=== PATIENT | male | born 1935 | race African-American/Black ===

== ENCOUNTER 2022-11-04 09:55 | Inpatient (IN) | payer OTHER ==
[2022-11-04] MEDS ORDERED: ACETAMINOPHEN 1000 MG/100 ML BAG IVPB ONE (10:53)
[2022-11-04 11:59] LABS: URINE APPEARANCE CLEAR; URINE BILIRUBIN NEGATIVE (NEGATIVE); URINE COLOR YELLOW; URINE GLUCOSE (UA) NEGATIVE (NEGATIVE); URINE KETONE NEGATIVE (NEGATIVE); URINE LEUK ESTERASE NEGATIVE (NEGATIVE); URINE NITRITE NEGATIVE (NEGATIVE); URINE PROTEIN NEGATIVE (NEGATIVE); URINE UROBILINOGEN 0.2 mg/dL (0.2-1.0)
[2022-11-04 12:00] LABS: BASO % 0.8 % (0-2.0); EOS % 0.2 % (0-4.5); HEMATOCRIT 25.7 % (35.4-49); HEMOGLOBIN 8.3 GM/dL (11.7-16.9); LYMPH % 26.9 % (8-40); MCH 26.5 pg (25.7-33.7); MCHC 32.3 g/dl (32.0-35.9); MEAN CELL VOLUME 82.1 fl (80-96); MEAN PLT VOLUME 7.8 fl (7.5-11.1); MONO % 7.7 % (3.8-10.2); NEUT % 64.4 % (42.8-82.8); PLATELET COUNT 224 10^3/uL (134-434); RBC 3.13 M/mm3 (4.00-5.60); RDW 15.6 % (11.9-15.9); WHITE BLOOD COUNT 4.2 K/mm3 (4.0-10.0)
[2022-11-04 12:07] LABS: INR 1.02 (0.83-1.09); PROTHROMBIN TIME (PATIENT) 11.7 SEC (9.7-13.0)
[2022-11-04 12:11] LABS: ACTIVATED PTT 29.1 SECONDS (25.2-36.5)
[2022-11-04 12:24] LABS: BLOOD UREA NITROGEN 16.5 mg/dL (7-18); CALCIUM 8.4 mg/dL (8.5-10.1)
[2022-11-04 12:25] LABS: ALBUMIN 3.2 g/dl (3.4-5.0)
[2022-11-04 12:28] LABS: CREATININE 1.3 mg/dL (0.55-1.3)
[2022-11-04 12:29] LABS: BILIRUBIN,TOTAL 0.3 mg/dL (0.2-1)
[2022-11-04] MEDS: PANTOPRAZOLE 40 MG TABLET PO SCH (19:33)
[2022-11-04 22:33] LABS: HEMOGLOBIN 8.9 GM/dL (11.7-16.9); MCH 27.2 pg (25.7-33.7); MCHC 32.8 g/dl (32.0-35.9); MEAN PLT VOLUME 7.3 fl (7.5-11.1); PLATELET COUNT 209 10^3/uL (134-434); RBC 3.25 M/mm3 (4.00-5.60); RDW 15.8 % (11.9-15.9); WHITE BLOOD COUNT 4.6 K/mm3 (4.0-10.0)
[2022-11-04] MEDS ORDERED: PANTOPRAZOLE 40 MG TABLET PO ONE (22:35)
[2022-11-04 23:05] LABS: CALCIUM 8.5 mg/dL (8.5-10.1)
[2022-11-04 23:06] LABS: ALBUMIN 3.1 g/dl (3.4-5.0); BLOOD UREA NITROGEN 15.3 mg/dL (7-18)
[2022-11-04 23:09] LABS: CREATININE 1.1 mg/dL (0.55-1.3)
[2022-11-04 23:10] LABS: BILIRUBIN,TOTAL 0.4 mg/dL (0.2-1)
[2022-11-04 23:11] LABS: TOT PROT 5.8 g/dl (6.4-8.2)
[2022-11-05 02:48] VITALS: BMI 32.5
[2022-11-05 10:18] LABS: BASO % 0.5 % (0-2.0); EOS % 0.4 % (0-4.5); HEMATOCRIT 27.3 % (35.4-49); HEMOGLOBIN 8.9 GM/dL (11.7-16.9); LYMPH % 34.8 % (8-40); MCH 26.9 pg (25.7-33.7); MCHC 32.5 g/dl (32.0-35.9); MEAN CELL VOLUME 82.9 fl (80-96); MEAN PLT VOLUME 7.7 fl (7.5-11.1); MONO % 8.1 % (3.8-10.2); NEUT % 56.2 % (42.8-82.8); PLATELET COUNT 228 10^3/uL (134-434); RDW 15.5 % (11.9-15.9); WHITE BLOOD COUNT 4.4 K/mm3 (4.0-10.0)
[2022-11-05] MEDS: PANTOPRAZOLE 40 MG TABLET PO SCH (10:21)
[2022-11-05 10:33] LABS: BLOOD UREA NITROGEN 15.6 mg/dL (7-18); CALCIUM 8.6 mg/dL (8.5-10.1)
[2022-11-05 10:36] LABS: CREATININE 1.2 mg/dL (0.55-1.3); PHOSPHOROUS 3.5 mg/dL (2.5-4.9)
[2022-11-05 10:38] LABS: BILIRUBIN,TOTAL 0.5 mg/dL (0.2-1); TOT PROT 5.8 g/dl (6.4-8.2)
[2022-11-05] MEDS: POLYETHYLENE GLYCOL (HEALTHYLAX) 3350 17 GM PACKET PO SCH ×2 (13:12→21:12)
[2022-11-06] MEDS: POLYETHYLENE GLYCOL (HEALTHYLAX) 3350 17 GM PACKET PO SCH ×3 (05:45→21:11)
[2022-11-06 09:35] LABS: BASO % 0.4 % (0-2.0); EOS % 0.4 % (0-4.5); HEMATOCRIT 26.1 % (35.4-49); HEMOGLOBIN 8.5 GM/dL (11.7-16.9); LYMPH % 37.1 % (8-40); MCH 27.1 pg (25.7-33.7); MCHC 32.8 g/dl (32.0-35.9); MEAN CELL VOLUME 82.7 fl (80-96); MEAN PLT VOLUME 7.5 fl (7.5-11.1); MONO % 8.8 % (3.8-10.2); NEUT % 53.3 % (42.8-82.8); PLATELET COUNT 239 10^3/uL (134-434); RBC 3.15 M/mm3 (4.00-5.60); RDW 15.5 % (11.9-15.9); WHITE BLOOD COUNT 4.2 K/mm3 (4.0-10.0)
[2022-11-06 09:44] LABS: CALCIUM 8.7 mg/dL (8.5-10.1)
[2022-11-06 09:45] LABS: BLOOD UREA NITROGEN 13.8 mg/dL (7-18)
[2022-11-06 09:48] LABS: CREATININE 1.2 mg/dL (0.55-1.3)
[2022-11-06] MEDS: PANTOPRAZOLE 40 MG TABLET PO SCH (10:40)
[2022-11-06] MEDS ORDERED: BISACODYL 5 MG TABLET.DR (FP) PO ONE (16:00)
[2022-11-06] MEDS ORDERED: PEG 3350/NA SULF BICARB CL/KCL 4000 ML SOLN.RECON PO ONE (17:00)
[2022-11-07] MEDS: POLYETHYLENE GLYCOL (HEALTHYLAX) 3350 17 GM PACKET PO SCH ×3 (05:43→21:48)
[2022-11-07] MEDS: PANTOPRAZOLE 40 MG TABLET PO SCH (11:54)
[2022-11-07 14:11] LABS: BASO % 0.6 % (0-2.0); EOS % 0.3 % (0-4.5); HEMATOCRIT 29.9 % (35.4-49); HEMOGLOBIN 9.7 GM/dL (11.7-16.9); LYMPH % 31.2 % (8-40); MCHC 32.4 g/dl (32.0-35.9); MEAN CELL VOLUME 83.2 fl (80-96); MEAN PLT VOLUME 7.5 fl (7.5-11.1); MONO % 7.3 % (3.8-10.2); NEUT % 60.6 % (42.8-82.8); PLATELET COUNT 293 10^3/uL (134-434); RBC 3.59 M/mm3 (4.00-5.60); RDW 15.8 % (11.9-15.9); WHITE BLOOD COUNT 4.6 K/mm3 (4.0-10.0)
[2022-11-07 14:18] LABS: INR 1.02 (0.83-1.09); PROTHROMBIN TIME (PATIENT) 11.7 SEC (9.7-13.0)
[2022-11-07 14:27] LABS: CALCIUM 8.8 mg/dL (8.5-10.1)
[2022-11-07 14:28] LABS: BLOOD UREA NITROGEN 7.8 mg/dL (7-18)
[2022-11-07 14:31] LABS: CREATININE 1.1 mg/dL (0.55-1.3)
[2022-11-08] MEDS: POLYETHYLENE GLYCOL (HEALTHYLAX) 3350 17 GM PACKET PO SCH ×3 (06:11→21:56)
[2022-11-08 08:42] LABS: BASO % 0.5 % (0-2.0); EOS % 0.4 % (0-4.5); HEMATOCRIT 25.1 % (35.4-49); HEMOGLOBIN 8.3 GM/dL (11.7-16.9); LYMPH % 29.2 % (8-40); MCH 27.3 pg (25.7-33.7); MEAN CELL VOLUME 82.8 fl (80-96); MEAN PLT VOLUME 7.3 fl (7.5-11.1); NEUT % 60.9 % (42.8-82.8); PLATELET COUNT 226 10^3/uL (134-434); RBC 3.03 M/mm3 (4.00-5.60); RDW 15.9 % (11.9-15.9); WHITE BLOOD COUNT 4.5 K/mm3 (4.0-10.0)
[2022-11-08 08:47] LABS: INR 1.03 (0.83-1.09); PROTHROMBIN TIME (PATIENT) 11.8 SEC (9.7-13.0)
[2022-11-08 09:06] LABS: CALCIUM 8.5 mg/dL (8.5-10.1)
[2022-11-08 09:10] LABS: CREATININE 1.2 mg/dL (0.55-1.3)
[2022-11-08] MEDS: PANTOPRAZOLE 40 MG TABLET PO SCH (10:16)
[2022-11-09] MEDS: POLYETHYLENE GLYCOL (HEALTHYLAX) 3350 17 GM PACKET PO SCH ×3 (06:31→21:43)
[2022-11-09] MEDS: PANTOPRAZOLE 40 MG TABLET PO SCH (09:32)
[2022-11-09] MEDS ORDERED: BISACODYL 5 MG TABLET.DR (FP) PO ONE (16:00)
[2022-11-09] MEDS ORDERED: PEG 3350/NA SULF BICARB CL/KCL 4000 ML SOLN.RECON PO ONE (17:00)
[2022-11-10] MEDS: POLYETHYLENE GLYCOL (HEALTHYLAX) 3350 17 GM PACKET PO SCH ×3 (05:31→22:03)
[2022-11-10 10:59] LABS: BASO % 1.1 % (0-2.0); EOS % 0.9 % (0-4.5); HEMATOCRIT 26.4 % (35.4-49); HEMOGLOBIN 8.7 GM/dL (11.7-16.9); MCH 27.4 pg (25.7-33.7); MCHC 33.1 g/dl (32.0-35.9); MEAN CELL VOLUME 82.7 fl (80-96); MEAN PLT VOLUME 7.1 fl (7.5-11.1); MONO % 9.3 % (3.8-10.2); NEUT % 62.7 % (42.8-82.8); PLATELET COUNT 244 10^3/uL (134-434); RBC 3.19 M/mm3 (4.00-5.60); WHITE BLOOD COUNT 4.2 K/mm3 (4.0-10.0)
[2022-11-10 11:25] LABS: BLOOD UREA NITROGEN 4.6 mg/dL (7-18); CALCIUM 8.6 mg/dL (8.5-10.1)
[2022-11-10 11:28] LABS: CREATININE 1.2 mg/dL (0.55-1.3)
[2022-11-10 11:29] LABS: BILIRUBIN,TOTAL 0.5 mg/dL (0.2-1); TOT PROT 5.8 g/dl (6.4-8.2)
[2022-11-10] MEDS ORDERED: EPINEPHrine 1:10,000 (P-F SYR) 1 MG/10 ML DISP.SYRIN ONE (12:44)
[2022-11-10] MEDS: PANTOPRAZOLE 40 MG TABLET PO SCH (14:41)
[2022-11-11] MEDS: POLYETHYLENE GLYCOL (HEALTHYLAX) 3350 17 GM PACKET PO SCH ×3 (06:36→21:32)
[2022-11-11] MEDS: PANTOPRAZOLE 40 MG TABLET PO SCH (09:33)
[2022-11-11 10:56] LABS: BASO % 0.3 % (0-2.0); EOS % 0.6 % (0-4.5); HEMATOCRIT 26.2 % (35.4-49); HEMOGLOBIN 8.6 GM/dL (11.7-16.9); LYMPH % 16.6 % (8-40); MCH 27.2 pg (25.7-33.7); MCHC 32.9 g/dl (32.0-35.9); MEAN CELL VOLUME 82.7 fl (80-96); MEAN PLT VOLUME 6.9 fl (7.5-11.1); MONO % 9.3 % (3.8-10.2); NEUT % 73.2 % (42.8-82.8); PLATELET COUNT 235 10^3/uL (134-434); RBC 3.17 M/mm3 (4.00-5.60); RDW 16.1 % (11.9-15.9); WHITE BLOOD COUNT 5.4 K/mm3 (4.0-10.0)
[2022-11-11] MEDS: metoPROLOL SUCCINATE 25 MG TAB.SR.24H (FP) PO SCH (15:49)
[2022-11-11] MEDS: TAMSULOSIN HCL 0.4 MG CAP PO SCH (15:49)
[2022-11-11] MEDS: FINASTERIDE 5 MG TABLET (FP) PO SCH (15:50)
[2022-11-11] MEDS: amLODIPine BESYLATE 5 MG TABLET (FP) PO SCH (15:50)
[2022-11-11] MEDS ORDERED: ATORVASTATIN CA 10 MG TABLET (FP) PO SCH (22:00)
[2022-11-12] MEDS: POLYETHYLENE GLYCOL (HEALTHYLAX) 3350 17 GM PACKET PO SCH ×2 (05:59→13:38)
[2022-11-12 06:17] VITALS: TEMP 98.9
[2022-11-12] MEDS: PANTOPRAZOLE 40 MG TABLET PO SCH (09:45)
[2022-11-12] MEDS: metoPROLOL SUCCINATE 25 MG TAB.SR.24H (FP) PO SCH (09:45)
[2022-11-12] MEDS: amLODIPine BESYLATE 5 MG TABLET (FP) PO SCH (09:45)
[2022-11-12] MEDS: FINASTERIDE 5 MG TABLET (FP) PO SCH (09:45)
[2022-11-12] MEDS: TAMSULOSIN HCL 0.4 MG CAP PO SCH (09:45)
[2022-11-12 13:15] LABS: HEMATOCRIT 28.3 % (35.4-49); HEMOGLOBIN 9.2 GM/dL (11.7-16.9); MCH 27.1 pg (25.7-33.7); MCHC 32.6 g/dl (32.0-35.9); MEAN CELL VOLUME 83.3 fl (80-96); MEAN PLT VOLUME 7.2 fl (7.5-11.1); PLATELET COUNT 261 10^3/uL (134-434); RDW 16.3 % (11.9-15.9); WHITE BLOOD COUNT 5.5 K/mm3 (4.0-10.0)
[2022-11-12 14:38] VITALS: BP 131/71; PULSE 77; RESP 18
== END 2022-11-12 16:33 | disposition home or self-care (01) | DRG 379 ==
LOC: JER 09:55 → JERBED 11:16 → J8W 23:18
PROVIDERS: ADMIT Internal Medicine; ATTEND Internal Medicine
PROC: 0DBH8ZX Excision of Cecum, Via Natural or Artificial Opening Endoscopic, Diagnostic (ICD-10-PCS; 2022-11-07)
PROC: 0DBC8ZX Excision of Ileocecal Valve, Via Natural or Artificial Opening Endoscopic, Diagnostic (ICD-10-PCS; principal; 2022-11-07 10:30)
PROC: 0DBL8ZX Excision of Transverse Colon, Via Natural or Artificial Opening Endoscopic, Diagnostic (ICD-10-PCS; 2022-11-10)
PROC: 0DBN8ZX Excision of Sigmoid Colon, Via Natural or Artificial Opening Endoscopic, Diagnostic (ICD-10-PCS; 2022-11-10)
PROC: 0DBF8ZX Excision of Right Large Intestine, Via Natural or Artificial Opening Endoscopic, Diagnostic (ICD-10-PCS; 2022-11-10)
PROC: 0DBC8ZX Excision of Ileocecal Valve, Via Natural or Artificial Opening Endoscopic, Diagnostic (ICD-10-PCS; 2022-11-10)
PROC: 0DBK8ZX Excision of Ascending Colon, Via Natural or Artificial Opening Endoscopic, Diagnostic (ICD-10-PCS; 2022-11-10)
DX: K92.2 Gastrointestinal hemorrhage, unspecified (principal); I10 Essential (primary) hypertension; E78.5 Hyperlipidemia, unspecified; K57.30 Diverticulosis of large intestine without perforation or abscess without bleeding; K63.5 Polyp of colon; K64.8 Other hemorrhoids; M88.9 Osteitis deformans of unspecified bone; D17.79 Benign lipomatous neoplasm of other sites; C61 Malignant neoplasm of prostate
CPT/HCPCS: 36415; 36430; 71045-TC-FY; 74174-TC; 80048; 80053; 81003; 82272; 82607; 82728; 82746; 83540; 83550; 83735; 84100; 84439; 84443; 84484; 85025; 85027; 85610; 85730; 86850; 86900; 86901; 86922; 87086; 88305-TC; 93005; 93010; 99291; C9803-CS; P9058; Q9967; U0003; U0005